=== PATIENT | female | born 1985 | race Caucasian/White ===

== ENCOUNTER → 2022-06-12 14:40 | Outpatient (CLI) | payer OTHER, SELFPAY ==
--- NOTE | 2022-06-12 14:42 | DI.US.S_ITS ---
PROCEDURE: US OB >= 14 WEEKS FETUS INDICATIONS: ANATOMY OUTSIDE/PRIOR DATING DATA: First dating scan (date and location): Outside exam not available Estimated date of delivery (CAROL) from first dating scan: 10/14/2022 The calculations are made using the reported outside ultrasound CAROL of 10/14/2022. TECHNIQUE: Real-time scanning was performed of the fetus, with image documentation and biometric measurements. Endovaginal scanning: Not performed. COMPARISON: None. FINDINGS: General: A single living intrauterine gestation is present. Presentation: Breech Placenta: Placental position is posterior, without previa. Amniotic fluid index: 15.2 cm, normal range is 5-24 cm. Single deepest vertical pocket is 4.1 cm. heart rate: 137 beats per minute. Maternal cervical canal: 3.5 cm long. Normal lower limit is 2.5 cm. biometrics: Biparietal diameter: 5.4 cm, 22 weeks 4 days Head circumference: 20.9 cm, 23 weeks 0 days Abdominal circumference: 17.8 cm, 22 weeks 4 days Femur length: 4.0 cm, 22 weeks 5 days Clinically estimated gestational age: 22 weeks 2 days Composite gestational age from present scan: 22 weeks 5 days Estimated weight and percentile: 526 grams, 65th percentile Anatomic survey: Neuro: Ventricles are non-dilated at less than 10 mm. Cisterna magna is normal at 3-11 mm. Cerebellum is normal in size and morphology. Nuchal skin fold: Normal at less than 6 mm between 14-21 weeks gestational age. Face: Nose and lips, facial profile are normal. Spine: No evidence for spina bifida. Heart: 4-chambered heart is present, with normal ventricular outflow tracts. Diaphragm: Diaphragm is intact. Stomach: Left-sided stomach is present. Kidneys: No hydronephrosis. Normal is less than 5 mm in 2nd trimester, less than 7 mm in 3rd trimester. Cord: 3-vessel cord has orthotopic insertion. Bladder: Normal in size. Extremities: All 4 extremities identified. IMPRESSION: 1. Single live intrauterine . Estimated weight 526 grams, 65th percentile for gestational age. 2. anatomic survey is within normal limits. We strive to produce accurate, complete, and clear reports of imaging services. To assist us in improving patient care, this report was composed using standard report templates and voice recognition software. Therefore, it may contain abnormal punctuation, insertions and/or omissions. Occasional wrong-word or sound-alike substitutions may occur. Though we review the report and make efforts to correct it, we do recommend that the report be read carefully in proper context to recognize any text inaccuracies. Dictated by: Joao Caldwell M.D. on 06/12/2022 at 19:54 Approved by: Joao Caldwell M.D. on 06/12/2022 at 19:58
== END ==
PROVIDERS: Referring Provider Obstetrics & Gynecology; Visit Provider Obstetrics & Gynecology
DX: Z34.02 Encounter for supervision of normal first pregnancy, second trimester (principal); Z3A.22 22 weeks gestation of pregnancy
CPT/HCPCS: 76811

== ENCOUNTER → 2022-07-22 08:30 | Outpatient (CLI) | payer OTHER, SELFPAY ==
[2022-07-22 10:58] LABS: Hematocrit 28.8 % (36-46); Hemoglobin 10.5 g/dL (12.0-16.0)
[2022-07-22 11:51] LABS: Alanine Aminotransferase 19 IU/L (<35); Albumin 3.6 g/dL (3.5-5.0); Albumin Globulin Ratio 1.2 (1.0-2.8); Alkaline Phosphatase 73 U/L (38-126); Aspartate Aminotransferase 21 IU/L (14-36); BUN Creatinine Ratio 15.8 (6-22); Bilirubin Total 0.5 mg/dL (0.2-1.3); Blood Urea Nitrogen 9 mg/dL (7-17); Calcium 8.6 mg/dL (8.4-10.2); Carbon Dioxide 19 mmol/L (22-32); Chloride 106 mmol/L (98-107); Estimated Glomerular Filt Rate > 60 mL/min (>60); Globulin 2.9 g/dL (1.7-4.1); HEMOLYSIS < 15 (0-50); Magnesium 1.8 mg/dL (1.6-2.3); Sodium 134 mmol/L (137-145); Total Protein 6.5 g/dL (6.3-8.2)
[2022-07-22 11:55] LABS: Glucose 118 mg/dL (70-100)
== END ==
PROVIDERS: Referring Provider Obstetrics & Gynecology; Visit Provider Obstetrics & Gynecology
DX: O99.891 Other specified diseases and conditions complicating pregnancy (principal); Z3A.26 26 weeks gestation of pregnancy; R25.2 Cramp and spasm
CPT/HCPCS: 36415; 80053; 83735; 85014; 85018

== ENCOUNTER → 2022-09-14 09:05 | Outpatient (CLI) | payer OTHER, SELFPAY ==
[2022-09-15 10:36] LABS: Strep Grp B PCR NEG for Grp B Strep
== END ==
PROVIDERS: Visit Provider Obstetrics & Gynecology
DX: Z34.03 Encounter for supervision of normal first pregnancy, third trimester (principal); Z3A.35 35 weeks gestation of pregnancy
CPT/HCPCS: 87653

== ENCOUNTER → 2022-09-23 12:27 | Outpatient (CLI) | payer OTHER, SELFPAY ==
--- NOTE | 2022-09-23 12:30 | DI.US.S_ITS ---
PROCEDURE: US OB LIMITED INDICATIONS: POSITION; EFW OUTSIDE/PRIOR DATING DATA: Established CAROL per outside exams: 10/14/2022. TECHNIQUE: Real-time scanning was performed of the fetus, with image documentation and biometric measurements. Endovaginal scanning: Not performed COMPARISON: [facility], OB >= 14 WEEKS FETUS, 06/12/2022, 14:48. FINDINGS: General: A single living intrauterine gestation is present. Presentation: Vertex. Placenta: Placental position is fundal , without previa. Amniotic fluid index: 14.0 cm, normal range is 5-24 cm. Single deepest vertical pocket is 7.9 cm. heart rate: 140 beats per minute. Maternal cervical canal: Not well visualized biometrics: Biparietal diameter: 9.5 cm, 38 weeks 5 days Head circumference: 33.2 cm, 37 weeks 6 days Abdominal circumference: 33.3 cm, 37 weeks 1 day Femur length: 7.3 cm, 37 weeks 4 days estimated gestational age: 37 weeks 0 days Composite gestational age from present scan: 37 weeks 6 days Estimated weight and percentile: 3233 g, 70th percentile Other: Not applicable. IMPRESSION: 1. Single living intrauterine in vertex presentation. 2. Estimated weight at the 70th percentile. We strive to produce accurate, complete, and clear reports of imaging services. To assist us in improving patient care, this report was composed using standard report templates and voice recognition software. Therefore, it may contain abnormal punctuation, insertions and/or omissions. Occasional wrong-word or sound-alike substitutions may occur. Though we review the report and make efforts to correct it, we do recommend that the report be read carefully in proper context to recognize any text inaccuracies. Dictated by: Joao Reza M.D. on 09/23/2022 at 17:05 Approved by: Joao Reza M.D. on 09/23/2022 at 17:11
== END ==
PROVIDERS: Referring Provider Physician Assistant Medical; Visit Provider Physician Assistant Medical
DX: Z34.03 Encounter for supervision of normal first pregnancy, third trimester (principal); Z3A.37 37 weeks gestation of pregnancy
CPT/HCPCS: 76815

== ENCOUNTER 2022-10-12 09:59 | Inpatient (IN) | payer OTHER, SELFPAY ==
[2022-10-12 11:56] LABS: Add Manual Diff / Slide Review NO; Basophils Absolute Auto 0 /uL (0-100); Basophils Percent Auto 0.4 % (0-2); Eosinophils Absolute Auto 100 /uL (0-450); Eosinophils Percent Auto 0.9 % (2-4); Hematocrit 31.3 % (36-46); Hemoglobin 10.8 g/dL (12.0-16.0); Lymphocytes Absolute Auto 2200 /uL (1100-4500); Mean Corpuscular HGB Conc 34.6 % (30-36); Mean Corpuscular Hemoglobin 29.5 PG (26-34); Mean Corpuscular Volume 85.3 fL (80-100); Monocytes Absolute Auto 500 /uL (0-900); Monocytes Percent Auto 4.5 % (3-14); Neutrophils Absolute Auto 7500 /uL (1500-7000); Neutrophils Percent Auto 73.2 % (50-75); Platelet Count 291 X10^3/uL (150-400); Red Blood Cell Count 3.67 X10^6/uL (4.0-5.2); Red Cell Distribution Width 18.5 % (11.6-14.8); White Blood Cell Count 10.3 X10^3/uL (4.5-11.0)
[2022-10-12 11:59] VITALS: BP 133/77
[2022-10-12 12:05] LABS: COVID19 -Nasal RAPID Negative (Negative)
--- NOTE | 2022-10-12 13:48 | PM.OBHP.IH.1 ---
OB HPI Date/Time Date of admission: 10/12/22 Date Patient Seen: 10/12/22 Time Patient Seen: 13:48 History of Present Condition Chief complaint: OB , leakage of fluid CAROL Calculator Estimated Delivery Date Method Current WG Current Estimate 10/13/22 LMP (Certain) 39w 6d Other Estimates 10/14/22 Ultrasound #1 39w 5d Estimated Gestational Age (weeks): 39 : 1 Narrative: 37 yo G1 presents for LOF since 430. She felt a small gush, then continued with leaking clear fluid per vagina. She has developed some contractions, only feeling mild discomfort with some contractions. Denies vaginal bleeding. Feeling good movement. has been uncomplicated. She is with the and transferred care here at 25 weeks. She had early care starting in the 1st trimester with her CAROL consistent with a 9 week ultrasound. She had a normal NIPT screen. care: good care Dating criteria OB: LMP confirmed by 1st trimester US Ultrasounds: normal 1st trimester US and normal mid trimester US Obstetrical complications: none Medical complications OB: none Preadmission Labs Last OB Lab Results: Blood Type O Positive 10/12/22 11:30 Antibody Screen Negative 10/12/22 11:30 Hematocrit 31.3 % (36-46) L 10/12/22 11:30 Hemoglobin 10.8 g/dL (12.0-16.0) L 10/12/22 11:30 Group B Streptococcus (PCR) Neg for grp b strep 09/14/22 09:05 -: Chlamydia screen: negative and Gonorrhea screen: negative -: PAP smear: Normal Evaluation Evaluation Baseline heart rate: 125 Variability: Average (6-10) monitor accelerations: Present Monitor Decelerations: Absent Contraction Frequency (minutes): 3 Uterine Contraction Intensity: Mild Category of Tracing: Reactive Status: Category l Dilation: 1-2 cm Effacement: 40-50% (in office 5 days ago, not check now) Non-invasive Membranes Rupture Test: positive Comments: Bedside US: vertex presentation [facility] Medical History Anxiety Depression Surgical History History of knee surgery Family History (Updated 06/11/22 @ 08:14 by Susana Anton RN) Sister Premature delivery Father End stage kidney disease Social History marital status: number of children: 0 household members: spouse lives independently: Yes housing: house pets and animals: Yes (3 cats, managing litter boxes) education level: college ([employer] degree) occupational status: employed current occupational exposures/hazards: Yes (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[employer])) special radha needs: No travel history: recent (domestic only) seatbelt use: always helmet use: Yes water heater temp set < 120 deg: Yes working smoke detector in home: Yes fire extinguisher in home: Yes carbon monox detector in home: Yes firearms in home: No do you feel safe at home: Yes Smoking Status: Never smoker second hand exposure: No alcohol intake: former (rarely, not while ) substance use type: marijuana (not while ) well-balanced diet: daily or most days daily servings fruits/ve or more times/day caffeine: Yes (aware of 200 mg limit) Type(s) of exercise: aerobic, bicycling (stationary bike), weight lifting and running frequency: 5-6 times per week Meds Home Medications and Allergies Home Medications Medication Instructions Recorded Confirmed Type bupropion HCl 300 mg 24 hr tablet, 300 mg PO QAM 06/11/22 10/12/22 History extended release (Wellbutrin XL) prenat.vits,ezio,[id number] 1 tab PO DAILY 06/11/22 10/12/22 History Allergies Allergy/AdvReac Type Severity Reaction Status Date / Time tomato Allergy Mild ITCHING Verified 10/07/22 11:35 OB Exam [facility] Head: normal to inspection and normocephalic Eyes General: appearance normal, both eyes and all related structures Resp Effort & Inspection: normal respiratory effort and able to speak in complete sentences Cardio Rate: regular rate Presentation: vertex Estimated Weight (lbs): 7 Amniotic Fluid: clear Other: EFW 7.5 lbs Objective Labs Result Diagrams: 10/12/22 11:30 Labs: Laboratory Results - last 24 hr 10/12/22 10/12/22 10/12/22 11:30 11:30 11:30 WBC 10.3 RBC 3.67 L Hgb 10.8 L Hct 31.3 L MCV 85.3 MCH 29.5 MCHC 34.6 RDW 18.5 H Plt Count 291 Neut % (Auto) 73.2 Lymph % (Auto) 21.0 L [place] % (Auto) 4.5 Eos % (Auto) 0.9 L Baso % (Auto) 0.4 Neut # (Auto) 7500 H Lymph # (Auto) 2200 [place] # (Auto) 500 Eos # (Auto) 100 Baso # (Auto) 0 SARS-CoV-2 (PCR) Negative Blood Type O Positive Antibody Screen Negative Assessment and Plan Assessment and Plan Assessment and Plan narrative: 37 yo G1 female @ 39wk6d with SROM @0430, approx 8 hours ago. GBS negative. Having frequent contractions but mild yet, not uncomfortable. -Admitted _routine CBC, type and screen done _Recommended Pitocin for augmentation, with no signs of labor yet. She agreed, desired proceeding with Pitocin augmentation. Cervical exam deferred currently, with recent exam in office 1.5/50% effaced. On ultrasound vertex, vertex appeared low with nothing in front of the head on ultrasound. Will check cervix when she has had uncomfortable contractions for 1-2 hours. Time Spent with Patient Total time spent with greater than 50% in coordination of care (as documented) at patient's floor/unit and/or counseling patient:: 15-24 minutes
[2022-10-12] MEDS: OXYTOCIN PREMIX 30 UNIT/500 ML PLAST..BAG 200 UNIT IV (14:02)
[2022-10-12] MEDS: LACTATED RINGERS 1,000 ML 100 ML IV ×3 (14:02→21:10)
--- NOTE | 2022-10-12 16:40 | PM.OBPNLAB ---
Date/Time Date Patient Seen: 10/12/22 Time Patient Seen: 16:40 Pain Control Pain control: tolerating well Comments: Contractions have become more uncomfortable, she is considering an epidural. Pelvic Exam Dilation (cm): 4 Effacement (%): 80 station: -2 Amniotic membrane status: Ruptured Contractions Contractions on admission: irregular Pitocin rate (mU/min): 3.5 Contraction frequency (min): 2 Contraction pattern: Irregular (every 2-3 min, occas up to 5 minutes) Contraction intensity: Mild Status status: Category l Heart Rate Baseline: 130 Monitor Accelerations: Present Monitor Decelerations: Absent Monitor Variability: Moderate Assessment and Plan Assessment: other (early labor) Plan: continuous present management (continue the Pitocn at the current dose, 3.5mu/min) Comments: epidural prn
--- NOTE | 2022-10-12 20:38 | PM.OBPNLAB ---
Date/Time Date Patient Seen: 10/12/22 Time Patient Seen: 20:30 Pain Control Pain control: epidural (comfortable) Pelvic Exam Dilation (cm): 5 Effacement (%): 80 station: 0 Amniotic membrane status: Ruptured (430am on 10/12) Contractions Pitocin rate (mU/min): 3 Contraction frequency (min): 3 Contraction pattern: Irregular (every 2-3 min, occas up to 5 minutes) Contraction intensity: Mild Status status: Category l Heart Rate Baseline: 115 Monitor Accelerations: Present Monitor Decelerations: Episodic, Late (occasional) and Variable Monitor Variability: Moderate Assessment and Plan Assessment: induction ongoing Plan: continuous present management (continue Pitocin) Comments: try to mildly increase Pitocin. Previously making Cervical change at 3.5 milliunits per minute, Pitocin currently just increased back to 3 from 2, decreased earlier when contractions became too frequent. However now after her epidural contractions are less frequent, irregular, every 2-5 minutes
[2022-10-12] MEDS: ONDANSETRON 4 MG/2 ML INJ IV (21:10)
--- NOTE | 2022-10-12 22:10 | PM.OBPNLAB ---
Date/Time Date Patient Seen: 10/12/22 Time Patient Seen: 22:00 Pain Control Pain control: epidural Pelvic Exam Dilation (cm): 7 Effacement (%): 90 station: 0 Amniotic membrane status: Ruptured (430am on 10/12) Contractions Contractions on admission: irregular Pitocin rate (mU/min): 6 Contraction frequency (min): 3 Contraction pattern: Irregular (every 2-3 min, occas up to 5 minutes) Contraction intensity: Mild Status status: Category ll Heart Rate Baseline: 115 Monitor Accelerations: Present Monitor Decelerations: Episodic, Late and Variable Assessment and Plan Assessment: induction ongoing Plan: continuous present management Comments: leave Pitocin at 6 mu, no further increase with cervical change again. EFM Cat 2, but overall reassuring
--- NOTE | 2022-10-12 23:51 | PM.OBPNLAB ---
Date/Time Date Patient Seen: 10/12/22 Time Patient Seen: 23:40 Pain Control Pain control: tolerating well and epidural Pelvic Exam Dilation (cm): 9.5 Effacement (%): 100 station: 0 Amniotic membrane status: Ruptured (430am on 10/12) Comments: Cervix: anterior lip/100/0 Contractions Pitocin rate (mU/min): 3 Contraction frequency (min): 3 Contraction pattern: Irregular (every 2-3 min, occas up to 5 minutes) Contraction intensity: Mild Status status: Category ll Heart Rate Baseline: 110 Monitor Accelerations: Episodic Monitor Decelerations: Variable Assessment and Plan Assessment: induction ongoing Plan: continuous present management Comments: anticipate pushing soon
--- NOTE | 2022-10-13 02:10 | PM.OBPRVD ---
Labor & Delivery Delivery date: 10/13/22 Intrapartal Events: None Cervical ripening method: none Induction method: none Delivery augmentation: pitocin Delivery monitor: external FHT and external uterine Route of delivery: Episiotomy description: None L&D Laceration Description: Periurethral - 1st Degree (bilateral) and Perineal - 2nd Degree Delivery repair: chromic Quantitative Blood Loss: 500 Anesthesia Type: Epidural Complications: none Narrative: She progressed to completely dilated 2+ station. She began pushing,and with the first contraction brought the head down to near . She was prepped and draped for delivery. Over the next 2 contractions she delivered the head in a controlled fashion over an intact perineum for a spontaneous vaginal delivery. No nuchal cord was present. Anterior then posterior shoulder delivered without difficulty with maternal pushing efforts, followed by the remainder of the body. The baby cried spontaneously, appeared vigorous and was placed on the maternal abdomen. After few minutes the cord was clamped and cut. Cord blood was obtained as specimen. After delivery a loose true knot was noted in the mid umbilical cord. the cord was noted to be fairly long. Placenta delivered spontaneously approximately 5 minutes later. It was intact and a long three-vessel cord was noted. Routine Pitocin IV restarted. Her IV pump briefly stopped and she subsequently did have some increased vaginal bleeding which ceased with uterine massage. On exam some blood clots were palpated at the cervix and lower uterine segment and were removed. With continued massage and restarting the IV Pitocin her uterus firmed up well and bleeding returned to and continued as normal. On inspection she had a 2nd degree perineal laceration which was repaired in the usual fashion with 3-0 chromic. She had bilateral first-degree periurethral tears which were reapproximated with 3 and 2 interrupted sutures of #4 chromic for her right side and left side respectively. The vaginal sidewalls were intact. The cervix palpated to be intact. She and the baby did well and was left recover in good condition. [place] Baby 1: Infant gender: Male Presentation: vertex Position: Right Occiput Anterior Placenta delivery description: Spontaneous Cord Vessel Description: 3 Vessels, True Knot and Around Extremity x1 score (1 min): 9 score (5 min): 9 weight: 8 lb 12.179 oz Plan for aftercare: Routine care
[2022-10-13] MEDS: DERMOPLAST SPRAY 20% 60 ML 1 SPRAY TOP (04:31)
[2022-10-13] MEDS: ACETAMINOPHEN 325 MG TABLET 650 MG PO ×3 (04:32→16:26)
[2022-10-13] MEDS: IBUPROFEN 600 MG TABLET PO ×3 (04:32→16:26)
[2022-10-13] MEDS: DOCUSATE 100 MG CAPSULE PO (10:19)
[2022-10-13] MEDS: buPROPion XL 150 MG TAB 300 MG PO (10:21)
[2022-10-13 11:51] VITALS: BP 102/64; PULSE 84; RESP 16; TEMP 37.1
[2022-10-13 12:04] LABS: Add Manual Diff / Slide Review NO; Basophils Absolute Auto 0 /uL (0-100); Basophils Percent Auto 0.3 % (0-2); Eosinophils Absolute Auto 0 /uL (0-450); Eosinophils Percent Auto 0.4 % (2-4); Lymphocytes Absolute Auto 1700 /uL (1100-4500); Lymphocytes Percent Auto 15.4 % (25-40); Mean Corpuscular Hemoglobin 29.7 PG (26-34); Mean Corpuscular Volume 84.9 fL (80-100); Monocytes Absolute Auto 500 /uL (0-900); Monocytes Percent Auto 4.1 % (3-14); Neutrophils Absolute Auto 8900 /uL (1500-7000); Neutrophils Percent Auto 79.8 % (50-75); Platelet Count 241 X10^3/uL (150-400); Red Cell Distribution Width 19.6 % (11.6-14.8); White Blood Cell Count 11.1 X10^3/uL (4.5-11.0)
--- NOTE | 2022-10-13 15:14 | PM.OBDS.1 ---
Discharge Providers Provider Date of admission: 10/12/22 09:59 Discharge Date: 10/13/22 Primary care physician: Doctor Leidy MD Consults: 10/14/22 02:32 Consult to Traffic Workforce Representative Routine Comment: Discharge provider: Evangelina Smith MD Summary Hospital Course Date Patient Seen: 10/13/22 Time Patient Seen: 15:20 Diagnoses: 40 week , delivered. Hospital Course: 37 yo G1 now P1 female admitted at [facility] 39 weeks 6days with spontaneous rupture membranes. She developed regular contractions, but without active labor. Pitocin was added for augmentation and she progressed into labor. She received an epidural for anesthesia and progressed to having a spontaneous vaginal delivery with a quick 2nd stage. She delivered a vigorous male infant weighing 8 lb 12 oz. She had repair of a 2nd degree perineal laceration. She did have some heavier vaginal bleeding after delivery of the placenta when the Pitocin stopped running, but this was quickly controlled with uterine massage and restarting the Pitocin. She did not have a hemorrhage. She reports that she is doing well on day 1. Her perineal discomfort is mild and controlled with ice packs and ibuprofen. Her lochia is light. she did have a drop in her H/ H due to some heavier blood loss at the delivery, Discussed. She reports she is ambulating without any problems. Denies lightheadedness. Voiding without problems. Working on , baby is latching fairly well. Her moods have been fine. She was continued on her Wellbutrin. Baby is ready for discharge and patient desires discharge to home today on day 1. She has had a normal course and she will be discharged with a follow-up visit in 6 weeks. Peripartum Data Infant Delivery Method: Natural Vaginal Laceration Description: Perineal - 2nd Degree Episiotomy description: None complications: none 1: Gender: Male Disposition of : home Discharge Diagnosis (1) Status post normal vaginal delivery: Status: Acute (2) Anemia due to blood loss, acute: Start Date: 10/13/22 Start Time: 17:28 Status: Acute Status at Discharge Cognitive/behavioral status at discharge: oriented and at baseline, oriented Functional status at discharge: independent ambulation Overall status at discharge: patient is progressing back to baseline Time Spent with Patient Time attestation: Total time spent providing and/or coordinating discharge services: Time spent: Less than 30 minutes Specific discharge activities: seeing patient and eliciting history, physical exam, reviewing discharge instructions and precautions and sending prescriptions. Objective Labs Result Diagrams: 10/13/22 11:57 Labs: Laboratory Results - last 24 hr 10/13/22 11:57 WBC 11.1 H RBC 2.70 L Hgb 8.0 L Hct 23.0 L MCV 84.9 MCH 29.7 MCHC 35.0 RDW 19.6 H Plt Count 241 Neut % (Auto) 79.8 H Lymph % (Auto) 15.4 L [place] % (Auto) 4.1 Eos % (Auto) 0.4 L Baso % (Auto) 0.3 Neut # (Auto) 8900 H Lymph # (Auto) 1700 [place] # (Auto) 500 Eos # (Auto) 0 Baso # (Auto) 0 Exam Vital Signs (past 8 hours): - 10/13/22 11:51 Temperature 98.8 F Pulse Rate 84 Respiratory Rate 16 Blood Pressure 102/64 Narrative Exam Narrative: General: Well-appearing female Abdomen: Soft, nontender, nondistended. Fundus @U, firm, nontender Extremities: Trace pedal edema Discharge Plan Discharge Plan Patient Disposition: Home Provider Discharge Comment: Congratulations on the delivery of your baby boy! You had a spontaneous vaginal delivery on 10/13/22 and repair of a second degree perineal tear. You do have some anemia due to some blood loss after delivery of the placenta. Take the prescribed iron for 1 month to help bring your blood count up as well as your vitamin. I recommend taking a stool softener such as Colace daily while you are on the iron, to keep the stool soft. You may use [id number] Tylenol as directed for pain, besides the prescription ibuprofen. See the attached discharge instructions for vaginal delivery. Discharge orders & Medications Prescriptions: New ibuprofen 600 mg Tablet 600 mg PO Q6HR PRN (Reason: Pain, Mild (1-3)) Qty: 60 0RF ferrous sulfate 325 mg (65 mg iron) tablet 325 mg PO DAILY Qty: 30 0RF Continued prenat.vits,ezio,[id number] Tablet 1 tab PO DAILY bupropion HCl [Wellbutrin XL] 300 mg tablet extended release 24 hr 300 mg PO QAM Discontinued ferrous sulfate 325 mg (65 mg iron) tablet See Rx Instructions .ROUTE .COMPLEX Qty: 90 1RF Dose Instruction: TAKE 1 TABLET BY MOUTH DAILY. Rx Instructions: TAKE 1 TABLET BY MOUTH DAILY. Follow up/Referrals: Kary Urias PA-C [[employer]] - ( appt w/ Kary Urias: @ 12:45pm) Discharge Health Status Multidrug resistant organism: No MDRO Diet/Activity/Treatments Diet: Regular Skin/Wound/Dressing Care Report to your healthcare provider any signs of infection, such as:: chills, fever and increased pain Visit Report/Discharge Packet Instructions: DI for Labor and Delivery, Vaginal , DI for Depression Stand Alone Forms: Discharge: Care Discharge Data Primary Care Provider: Miscellaneous,Doctor
== END 2022-10-13 20:35 | disposition home or self-care (01) | DRG 806 ==
PROVIDERS: Admitting Provider Obstetrics & Gynecology; Referring Provider Obstetrics & Gynecology; Visit Provider Obstetrics & Gynecology
DX: O42.02 Full-term premature rupture of membranes, onset of labor within 24 hours of rupture (principal); D62 Acute posthemorrhagic anemia; O99.02 Anemia complicating childbirth; Z37.0 Single live birth; O76 Abnormality in fetal heart rate and rhythm complicating labor and delivery; Z3A.39 39 weeks gestation of pregnancy; O70.1 Second degree perineal laceration during delivery; O70.0 First degree perineal laceration during delivery; Z20.822 Contact with and (suspected) exposure to COVID-19
CPT/HCPCS: 36415; 59050; 59410; 85025; 86850; 86900; 86901; 87635; C9803; G0379; J2405; J2590

== ENCOUNTER → 2022-11-11 09:54 | Outpatient (CLI) | payer OTHER, SELFPAY ==
[2022-11-11 11:25] LABS: HEMOLYSIS < 15 (0-50); Iron 49 ug/dL (37-170)
[2022-11-11 11:38] LABS: Percent Iron Saturation 13 % (15-50); Total Iron Binding Capacity 384 ug/dL (265-497); Transferrin 291 mg/dL (206-381)
[2022-11-11 11:43] LABS: Vitamin D 25 Hydroxy (D3) 36.7 ng/mL (30.0-100.0)
[2022-11-11 11:45] LABS: Free T3, Triiodothyronine Free 3.73 pg/mL (2.77-5.27); Free T4, Direct Thyroxine 0.89 ng/dL (0.78-2.19)
[2022-11-11 11:53] LABS: Estradiol, Total 85.7 pg/mL
[2022-11-11 11:55] LABS: Ferritin 9 ng/mL (6-137); Testosterone 20.3 ng/dL (5.71-77.0)
[2022-11-11 11:59] LABS: Thyroid Stimulating Hormone 1.44 uIU/mL (0.47-4.68)
[2022-11-11 12:11] LABS: Vitamin B12 Reflex MMA if <400 658 pg/mL (239-931)
[2022-11-30 15:20] LABS: Triiodothyronine T3 Reverse 8.1
== END ==
PROVIDERS: Referring Provider Family Medicine; Visit Provider Family Medicine
DX: D62 Acute posthemorrhagic anemia (principal); O92.79 Other disorders of lactation
CPT/HCPCS: 36415; 82306; 82607; 82670; 82728; 83540; 83550; 84146; 84403; 84439; 84443; 84481; 84482